=== PATIENT | female | born 1985 | race African-American/Black ===

== ENCOUNTER 2021-10-01 09:03 | Emergency (ER) | payer MEDICAID, OTHER ==
[~2021-10-01] VITALS: Ht 170.2 cm; Wt 68.0 kg
[~2021-10-01 09:03] MED LIST: ALBU2.5V13
[2021-10-01] MEDS ORDERED: LIDOCAINE HCL/EPINEPHRINE 1%-EPI 1:100,000 20 ML VIAL INFIL ONE (10:45)
[2021-10-01] MEDS ORDERED: TETANUS, DIPHTHERIA, PERTUSSIS VAC/PF 0.5ML (>10YR OLD) IM ONE (10:45)
[2021-10-01 11:06] LABS: BASOPHILS % 0.8 % (0.0-2.0); EOSINOPHILS % 9.5 % (0.0-5.0); HEMATOCRIT. 40.8 % (36.0-48.0); HEMOGLOBIN. 13.3 g/dL (12.0-16.0); LYMPHOCYTES % 46.6 % (20.0-50.0); MEAN CORPUSCULAR HEMOGLOBIN 29.7 pg (28.0-32.0); MEAN CORPUSCULAR VOLUME 90.8 fL (81.0-99.0); MEAN PLATELET VOLUME 9.4 fl (7.4-10.4); NEUTROPHILS % 36.1 % (40.0-76.0); PLATELET 236 x1000/uL (130-400); RED BLOOD CELL COUNT 4.49 mill/uL (4.2-5.4); RED CELL DISTRIBUTION WIDTH 15.6 % (11.6-14.6)
[2021-10-01 11:08] LABS: CHLORIDE 109 mEq/L (98-107)
[2021-10-01 11:24] LABS: HCG SCREEN NEGATIVE
[2021-10-01 14:00] VITALS: BP 119/77
== END 2021-10-01 14:14 | disposition home or self-care (01) ==
LOC: ER 09:13
DX: S01.112A Laceration without foreign body of left eyelid and periocular area, initial encounter (principal); S50.312A Abrasion of left elbow, initial encounter; V49.49XA Driver injured in collision with other motor vehicles in traffic accident, initial encounter; Y93.89 Activity, other specified; Y92.488 Other paved roadways as the place of occurrence of the external cause
CPT/HCPCS: 36415; 70486; 71045; 72125; 80053; 83690; 84484; 84703; 85025; 90471; 90715; 93005; 99285; J3490; Z7610

== ENCOUNTER 2021-10-11 12:15 | Emergency (ER) | payer MEDICAID ==
[~2021-10-11] VITALS: Ht 165.1 cm; Wt 82.0 kg
[2021-10-11 12:31] VITALS: BP 109/69
== END 2021-10-11 13:08 | disposition home or self-care (01) ==
LOC: ER 12:15
DX: Z48.02 Encounter for removal of sutures (principal); J45.909 Unspecified asthma, uncomplicated
CPT/HCPCS: 99281; Z7610

== ENCOUNTER 2022-06-15 21:28 | Inpatient (IN) | payer MEDICAID ==
[~2022-06-15] VITALS: Ht 167.6 cm; Wt 74.8 kg
[2022-06-15] MEDS ORDERED: ACETAMINOPHEN 325MG TABLET PO PRN (22:00)
[2022-06-15 22:41] LABS: HEMATOCRIT. 38.6 % (36.0-48.0); LYMPHOCYTES % 32.6 % (20.0-50.0); MEAN CORPUSCULAR HEMOGLOBIN 29.9 pg (28.0-32.0); MEAN PLATELET VOLUME 8.5 fl (7.4-10.4); MONOCYTES % 4.6 % (2.0-8.0); NEUTROPHILS % 57.8 % (40.0-76.0); PLATELET 289 x1000/uL (130-400); RED BLOOD CELL COUNT 4.33 mill/uL (4.2-5.4); RED CELL DISTRIBUTION WIDTH 16.9 % (11.6-14.6)
[2022-06-15 22:48] LABS: CHLORIDE 104 mEq/L (98-107)
[2022-06-15 22:59] LABS: B-HCG QUANTITATIVE 478 mIU/mL (<3)
[2022-06-15 23:04] LABS: CLARITY URINE CLOUDY (CLEAR); COLOR URINE YELLOW (YELLOW); KETONES URINE 1+ (NEGATIVE); LEUKOCYTE ESTERASE URINE TRACE (NEGATIVE); NITRITE URINE NEGATIVE (NEGATIVE); OCCULT BLOOD URINE 3+ (NEGATIVE); PH URINE 8.5 (4.5-8.0); PROTEIN URINE TRACE (NEGATIVE); SPECIFIC GRAVITY URINE 1.023 (1.005-1.030)
[2022-06-15 23:15] LABS: *BARBITURATES SCREEN URINE NEGATIVE (NEGATIVE); *BENZODIAZEPINES SCREEN URINE NEGATIVE (NEGATIVE); *COCAINE SCREEN URINE NEGATIVE (NEGATIVE); CANNABINOID URINE SCREEN NEGATIVE (NEGATIVE); METHADONE URINE SCREEN NEGATIVE (NEGATIVE); OPIATES URINE SCREEN NEGATIVE (NEGATIVE); PHENCYCLIDINE URINE SCREEN NEGATIVE (NEGATIVE)
[2022-06-15 23:24] LABS: *AMPHETAMINES SCREEN URINE PRESUMTIVE POSITIVE (NEGATIVE)
[2022-06-16] MEDS ORDERED: ONDANSETRON HCL 4MG/2ML INJ IV STA (05:11)
[2022-06-16] MEDS ORDERED: MORPHINE SULFATE 4 MG/ML CPJ (NOT FOR IM USE) IV STA (05:11)
[2022-06-16] MEDS ORDERED: SODIUM CHLORIDE 0.9% 1,000 ML IV ONE (05:15)
[2022-06-16] MEDS ORDERED: METHOTREXATE SODIUM/PF 50 MG/2 ML VIAL IM NR (11:00)
[2022-06-16 12:00] VITALS: BP 134/79
[2022-06-16 12:02] VITALS: BP 121/72
[2022-06-16] MEDS ORDERED: HYDROCODONE/ACETAMINOPHEN 5/325MG TABLET PO NR (12:30)
[2022-06-16 12:41] VITALS: BP 121/72
== END 2022-06-16 13:21 | disposition home or self-care (01) | DRG 566 ==
LOC: ER 21:28 → 6EST 06-16 06:41 → ENRESERV 06-16 09:14
PROVIDERS: ADMIT Obstetrics & Gynecology; ATTEND Obstetrics & Gynecology
DX: O00.90 Unspecified ectopic pregnancy without intrauterine pregnancy (principal); O99.331 Smoking (tobacco) complicating pregnancy, first trimester; O99.511 Diseases of the respiratory system complicating pregnancy, first trimester; Z20.822 Contact with and (suspected) exposure to COVID-19
CPT/HCPCS: 36415; 76801; 80053; 80305; 81003; 84702; 85025; 86850; 86900; 87426; 99291; C9803; J2270; J2405; J7030; J9260